=== PATIENT | female | born 1935 | race Caucasian/White ===

== ENCOUNTER 2016-10-19 10:11 | Outpatient (CLI) | payer MEDICARE | END 2016-10-19 10:12 | disposition home or self-care (01) | DX: Z12.31 Encounter for screening mammogram for malignant neoplasm of breast (principal) ==

== ENCOUNTER 2017-04-07 08:00 | Outpatient (CLI) | payer MEDICARE ==
[2017-04-08 11:35] LABS: ALBUMIN/GLOBULIN RATIO 1.2 (1.0-2.2); BILIRUBIN,TOTAL 1.3 mg/dL (0.2-1.0); BUN - BLOOD UREA NITROGEN 15 mg/dL (6-20); CALCIUM 9.8 mg/dL (8.5-10.3); CARBON DIOXIDE - CO2 26 mmol/L (21-32); CHLORIDE 103 mmol/L (101-111); CHOL/HDL RATIO 2.5 (<4.4); CHOLESTEROL 204 mg/dL; CREATININE 0.9 mg/dL (0.4-1.0); GFR - MDRD 60 (>89); GLUCOSE 105 mg/dL (70-100); HDL CHOLESTEROL 81 mg/dL; LDL/HDL RATIO 1.1 (<4.4); POTASSIUM 4.4 mmol/L (3.5-5.0); SODIUM 136 mmol/L (135-145); TOTAL PROTEIN 7.6 g/dL (6.7-8.2); TRIGLYCERIDES 175 mg/dL; VLDL CHOLESTEROL 35 mg/dL
[2017-04-08 11:49] LABS: HEMOGLOBIN A1C 0.63 g/dL
== END 2017-04-07 08:01 | disposition home or self-care (01) ==
LOC: LAB.F 08:00
PROVIDERS: ATTEND Internal Medicine
DX: E78.00 Pure hypercholesterolemia, unspecified (principal); R73.9 Hyperglycemia, unspecified
CPT/HCPCS: 36415; 80053; 80061; 83036

== ENCOUNTER 2018-07-06 10:26 | Outpatient (CLI) | payer MEDICARE ==
--- NOTE | 2018-07-07 10:47 | Mammography Report ---
Reason: SCREENING MAMMO Procedure Date: 07/06/2018 Accession Number: [id number] / [id number] Procedure: MGS - Screening Mammo Dig Bilat CPT Code: FULL RESULT: EXAM: Screening Mammo Dig Bilat DATE: 07/06/2018 11:02 AM CLINICAL HISTORY: Routine screening TECHNIQUE: Bilateral CC and MLO views were obtained. COMPARISON: 10/19/2016, 06/27/2013, 05/25/2012, and 05/19/2011 FINDINGS: There are scattered fibroglandular densities. There is no significant interval change on the left. On the right there is a new 1 cm nodule 10:00 position posterior third for which spot compression and true lateral views with ultrasound is suggested. Otherwise no suspicious masses, clustered microcalcifications, or regions of architectural distortion are identified. IMPRESSION: Needs additional evaluation right breast. Negative left breast. RECOMMENDATION: Spot compression and true lateral views right breast with ultrasound BIRADS CATEGORY 0: Needs additional evaluation. STANDARD QUALIFYING STATEMENTS: 1. This examination was reviewed with the aid of Computer-Aided Detection (CAD). 2. A negative or benign imaging report should not delay biopsy if clinically suspicious findings are present. Consider surgical consultation if warrented. More than 5% of cancers are not identified by imaging. 3. Dense breasts may obscure an underlying neoplasm.
== END 2018-07-06 10:27 | disposition home or self-care (01) ==
LOC: DI.S 10:26
DX: Z12.31 Encounter for screening mammogram for malignant neoplasm of breast (principal)
CPT/HCPCS: 77067

== ENCOUNTER 2018-07-28 13:51 | Outpatient (CLI) | payer MEDICARE ==
--- NOTE | 2018-07-28 16:41 | Mammography Report ---
Reason: ABN MAMMO -RT SPEC VIEWS Procedure Date: 07/28/2018 Accession Number: [id number] / [id number] Procedure: LON - Diag Special Views Dig RT CPT Code: FULL RESULT: EXAM: Diag Special Views Dig RT DATE: 07/28/2018 3:04 PM CLINICAL HISTORY: Recall from recent screening exam for small oval mass lateral right breast. TECHNIQUE: Right CC and MLO spot compression. CC and MLO 3-D mammography. Real-time targeted ultrasound. COMPARISON: 07/06/2018 through 05/19/2011 FINDINGS: The breast demonstrates scattered fibroglandular densities. Additional images confirm a 5 mm well-circumscribed oval mass at 8:00, 4 cm from nipple, right breast. There are no suspicious calcifications or areas of distortion. Ultrasound findings. Targeted ultrasound of the right breast is performed by the technologist. At 8:00, 4 cm from nipple there is a well-circumscribed 5 mm simple cyst corresponding to the mammographic finding. IMPRESSION: 5 mm simple cyst corresponds to finding recalled from recent screening exam. Benign. BI-RADS Category 2. RECOMMENDATION: Routine annual screening unless otherwise clinically indicated. BI-RADS CATEGORY 2: Benign findings STANDARD QUALIFYING STATEMENTS: 1. This examination was not reviewed with the aid of Computer-Aided Detection (CAD). 2. A negative or benign imaging report should not preclude biopsy if clinically suspicious findings are present. 3. Dense breasts may obscure an underlying neoplasm. 4. This examination was reviewed with the aid of 3D breast imaging (tomosynthesis).
== END 2018-07-28 13:52 | disposition home or self-care (01) ==
LOC: DI 13:51
PROVIDERS: ATTEND Nurse Practitioner Family
DX: N60.01 Solitary cyst of right breast (principal)
CPT/HCPCS: 76642

== ENCOUNTER 2018-11-13 12:35 | Outpatient (CLI) | payer MEDICARE ==
[2018-11-13 18:42] LABS: BASOPHILS % (AUTO) 0.6 %; EOSINOPHILS # (AUTO) 0.1 10^3/uL (0.0-0.7); EOSINOPHILS % (AUTO) 2.2 %; HGB - HEMOGLOBIN 14.3 g/dL (12.0-16.0); LYMPHOCYTES # (AUTO) 1.4 10^3/uL (1.5-3.5); LYMPHOCYTES % (AUTO) 31.4 %; MEAN CORPUSCULAR HEMOGLOBIN 33.7 pg (27.0-31.0); MEAN CORPUSCULAR HGB CONC 33.7 g/dL (32.0-36.0); MEAN CORPUSCULAR VOLUME 100.1 fL (81.0-99.0); MEAN PLATELET VOLUME 8.5 fL (7.9-10.8); MONOCYTES # (AUTO) 0.6 10^3/uL (0.0-1.0); MONOCYTES % (AUTO) 13.5 %; NEUTROPHILS # (AUTO) 2.3 10^3/uL (1.5-6.6); NEUTROPHILS % (AUTO) 52.3 %; PLT - PLATELET COUNT 201 10^3/uL (130-450); RED BLOOD COUNT 4.23 10^6/uL (4.20-5.40); RED CELL DISTRIBUTION WIDTH 13.3 % (12.0-15.0); WHITE BLOOD COUNT 4.3 x10^3/uL (4.8-10.8)
[2018-11-13 18:50] LABS: ALBUMIN 3.9 g/dL (3.2-5.5); ALBUMIN/GLOBULIN RATIO 1.1 (1.0-2.2); ALKALINE PHOSPHATASE 38 IU/L (42-121); ALT ALANINE AMINOTRANSFERASE 16 IU/L (10-60); AST ASPARTATE AMINOTRANSFERASE 22 IU/L (10-42); BILIRUBIN,TOTAL 1.7 mg/dL (0.2-1.0); BUN - BLOOD UREA NITROGEN 20 mg/dL (6-20); CALCIUM 9.6 mg/dL (8.5-10.3); CARBON DIOXIDE - CO2 26 mmol/L (21-32); CHLORIDE 98 mmol/L (101-111); CHOL/HDL RATIO 2.5 (<4.4); CHOLESTEROL 190 mg/dL; CREATININE 0.7 mg/dL (0.4-1.0); GFR - MDRD 80 (>89); GLUCOSE 110 mg/dL (70-100); HDL CHOLESTEROL 77 mg/dL; LDL CHOLESTEROL,CALCULATED 96 mg/dL; LDL/HDL RATIO 1.2 (<4.4); SODIUM 134 mmol/L (135-145); TOTAL PROTEIN 7.3 g/dL (6.7-8.2); VLDL CHOLESTEROL 17 mg/dL
[2018-11-13 20:59] LABS: HB2 TOTAL 14.9 g/dL; HEMOGLOBIN A1C 0.57 g/dL; HEMOGLOBIN A1C % 5.7 % (4.6-6.2)
== END 2018-11-13 12:36 | disposition home or self-care (01) ==
LOC: LAB.F 12:35
PROVIDERS: ATTEND Nurse Practitioner Family
DX: I10 Essential (primary) hypertension (principal); E78.00 Pure hypercholesterolemia, unspecified; R73.9 Hyperglycemia, unspecified; M19.90 Unspecified osteoarthritis, unspecified site; E55.9 Vitamin D deficiency, unspecified
CPT/HCPCS: 36415; 80053; 80061; 82043; 82306; 83036; 83721; 84443; 85025

== ENCOUNTER 2018-11-20 12:30 | Outpatient (CLI) | payer MEDICARE | END 2018-11-20 23:59 | LOC: LAB.F 12:30 | PROVIDERS: ATTEND Nurse Practitioner Family | DX: D75.89 Other specified diseases of blood and blood-forming organs (principal); E78.00 Pure hypercholesterolemia, unspecified | CPT/HCPCS: 36415; 82607; 82746; 82977 ==

== ENCOUNTER 2020-05-06 11:37 | Outpatient (CLI) | payer MEDICARE ==
[2020-05-06 14:55] LABS: BASOPHILS # (AUTO) 0.1 10^3/uL (0.0-0.1); BASOPHILS % (AUTO) 0.9 %; EOSINOPHILS # (AUTO) 0.2 10^3/uL (0.0-0.7); EOSINOPHILS % (AUTO) 2.9 %; HGB - HEMOGLOBIN 14.9 g/dL (12.0-16.0); LYMPHOCYTES # (AUTO) 1.4 10^3/uL (1.5-3.5); LYMPHOCYTES % (AUTO) 25.6 %; MEAN CORPUSCULAR HEMOGLOBIN 33.7 pg (27.0-31.0); MEAN CORPUSCULAR HGB CONC 33.9 g/dL (32.0-36.0); MEAN CORPUSCULAR VOLUME 99.3 fL (81.0-99.0); MEAN PLATELET VOLUME 10.6 fL (7.9-10.8); MONOCYTES # (AUTO) 0.7 10^3/uL (0.0-1.0); MONOCYTES % (AUTO) 13.2 %; NEUTROPHILS # (AUTO) 3.1 10^3/uL (1.5-6.6); PLT - PLATELET COUNT 204 10^3/uL (130-450); RED BLOOD COUNT 4.42 10^6/uL (4.20-5.40); RED CELL DISTRIBUTION WIDTH 12.8 % (12.0-15.0); WHITE BLOOD COUNT 5.5 x10^3/uL (4.8-10.8)
[2020-05-06 15:20] LABS: ALBUMIN 4.4 g/dL (3.2-5.5); ALBUMIN/GLOBULIN RATIO 1.4 (1.0-2.2); ALKALINE PHOSPHATASE 41 IU/L (42-121); ALT ALANINE AMINOTRANSFERASE 12 IU/L (10-60); AST ASPARTATE AMINOTRANSFERASE 18 IU/L (10-42); BILIRUBIN,TOTAL 1.8 mg/dL (0.2-1.0); BUN - BLOOD UREA NITROGEN 19 mg/dL (6-20); CALCIUM 9.8 mg/dL (8.5-10.3); CARBON DIOXIDE - CO2 26 mmol/L (21-32); CHLORIDE 102 mmol/L (101-111); CHOL/HDL RATIO 2.7 (<4.4); CHOLESTEROL 200 mg/dL; CREATININE 0.7 mg/dL (0.4-1.0); GLUCOSE 108 mg/dL (70-100); HDL CHOLESTEROL 75 mg/dL; LDL CHOLESTEROL,CALCULATED 107 mg/dL; LDL/HDL RATIO 1.4 (<4.4); SODIUM 137 mmol/L (135-145); TOTAL PROTEIN 7.5 g/dL (6.7-8.2); VLDL CHOLESTEROL 18 mg/dL
== END 2020-05-06 11:38 | disposition home or self-care (01) ==
LOC: LAB.S 11:37
PROVIDERS: ATTEND Registered Nurse
DX: I10 Essential (primary) hypertension (principal); D75.89 Other specified diseases of blood and blood-forming organs; E78.00 Pure hypercholesterolemia, unspecified; R73.9 Hyperglycemia, unspecified; I48.21 Permanent atrial fibrillation
CPT/HCPCS: 36415; 80053; 80061; 83721; 84443; 85025

== ENCOUNTER 2021-05-26 08:00 | Outpatient (CLI) | payer MEDICARE ==
--- NOTE | 2021-05-26 17:37 | XRAY Report ---
PROCEDURE: Thoracic Spine 3 View INDICATIONS: KYPHOSIS DEFORMITY OF SPINE TECHNIQUE: 3 views of the thoracic spine were acquired. COMPARISON: None. FINDINGS: No acute fracture. Scattered multilevel endplate spurring and diffuse facet arthropathy. Multilevel c ervical spondylosis also noted. IMPRESSION: Diffuse discogenic changes. No definite fracture identified. If the patient's pain or other symptoms persist, consider further evaluation with MRI. Reviewed by: Suman Hudson MD on 05/26/2021 5:35 PM PDT Approved by: Suman Hudson MD on 05/26/2021 5:35 PM PDT Station ID: [id number]
--- NOTE | 2021-05-26 20:55 | XRAY Report ---
PROCEDURE: Lumbar Spine 2 View INDICATIONS: KYPHOSIS DEFORMITY OF SPINE TECHNIQUE: 3 views of the lumbar spine were acquired. COMPARISON: None. FINDINGS: Bones: 5 dna-ddl-[id number] vertebrae are present. There is qzhb-ig-glvwihru scoliosis. No vertebral body compression fractures. No suspicious bony lesions. There is severe degenerative disease and fa cet arthropathy in lumbar spine, most pronounced at L1-L2, L4-L5 and L5-S1. Soft tissues: Overlying bowel gas pattern is normal. No suspicious soft tissue calcifications. IMPRESSION: 1. Degenerative disc and facet disease in lumbar spine. 2. Scoliosis. Reviewed by: Ammy Doty MD on 05/26/2021 8:54 PM PDT Approved by: Ammy Doty MD on 05/26/2021 8:54 PM PDT Station ID: [id number]
== END 2021-05-26 23:59 | disposition home or self-care (01) ==
LOC: DI.S 08:00
PROVIDERS: ATTEND Emergency Medicine
DX: M47.814 Spondylosis without myelopathy or radiculopathy, thoracic region (principal); M51.34 Other intervertebral disc degeneration, thoracic region; M47.816 Spondylosis without myelopathy or radiculopathy, lumbar region; M51.36 Other intervertebral disc degeneration, lumbar region; M47.817 Spondylosis without myelopathy or radiculopathy, lumbosacral region; M51.37 Other intervertebral disc degeneration, lumbosacral region

== ENCOUNTER 2021-07-16 08:58 | Outpatient (CLI) | payer MEDICARE ==
[2021-07-16 15:41] LABS: BASOPHILS % (AUTO) 0.8 %; EOSINOPHILS # (AUTO) 0.2 10^3/uL (0.0-0.7); EOSINOPHILS % (AUTO) 4.5 %; HCT - HEMATOCRIT 37.4 % (37.0-47.0); HGB - HEMOGLOBIN 11.6 g/dL (12.0-16.0); LYMPHOCYTES # (AUTO) 1.6 10^3/uL (1.5-3.5); LYMPHOCYTES % (AUTO) 31.5 %; MEAN CORPUSCULAR HEMOGLOBIN 29.4 pg (27.0-31.0); MEAN CORPUSCULAR VOLUME 94.7 fL (81.0-99.0); MEAN PLATELET VOLUME 9.8 fL (7.9-10.8); MONOCYTES # (AUTO) 0.8 10^3/uL (0.0-1.0); MONOCYTES % (AUTO) 15.2 %; NEUTROPHILS # (AUTO) 2.4 10^3/uL (1.5-6.6); NEUTROPHILS % (AUTO) 47.8 %; PLT - PLATELET COUNT 249 10^3/uL (130-450); RED BLOOD COUNT 3.95 10^6/uL (4.20-5.40); RED CELL DISTRIBUTION WIDTH 13.7 % (12.0-15.0); WHITE BLOOD COUNT 4.9 x10^3/uL (4.8-10.8)
[2021-07-16 15:59] LABS: ALBUMIN 3.9 g/dL (3.2-5.5); ALBUMIN/GLOBULIN RATIO 1.2 (1.0-2.2); ALKALINE PHOSPHATASE 40 IU/L (42-121); ALT ALANINE AMINOTRANSFERASE 18 IU/L (10-60); AST ASPARTATE AMINOTRANSFERASE 25 IU/L (10-42); BILIRUBIN,TOTAL 1.6 mg/dL (0.2-1.0); BUN - BLOOD UREA NITROGEN 22 mg/dL (6-20); CALCIUM 9.9 mg/dL (8.5-10.3); CARBON DIOXIDE - CO2 26 mmol/L (21-32); CHLORIDE 105 mmol/L (101-111); CHOL/HDL RATIO 2.1 (<4.4); CHOLESTEROL 174 mg/dL; CREATININE 0.8 mg/dL (0.4-1.0); GFR - MDRD 68 (>89); GLUCOSE 106 mg/dL (70-100); HDL CHOLESTEROL 82 mg/dL; LDL CHOLESTEROL,CALCULATED 75 mg/dL; LDL/HDL RATIO 0.9 (<4.4); POTASSIUM 4.3 mmol/L (3.5-5.0); SODIUM 141 mmol/L (135-145); TOTAL PROTEIN 7.1 g/dL (6.7-8.2); TRIGLYCERIDES 84 mg/dL; VLDL CHOLESTEROL 17 mg/dL
[2021-07-16 16:08] LABS: THYROID STIMULATING HORMONE 2.62 uIU/mL (0.34-5.60)
== END 2021-07-16 08:59 | disposition home or self-care (01) ==
LOC: LAB.S 08:58
PROVIDERS: ATTEND Registered Nurse
DX: I48.21 Permanent atrial fibrillation (principal); E78.00 Pure hypercholesterolemia, unspecified; R73.9 Hyperglycemia, unspecified; I10 Essential (primary) hypertension
CPT/HCPCS: 36415; 80053; 80061; 83721; 84443; 85025

== ENCOUNTER 2021-09-11 16:25 | Outpatient (CLI) | payer MEDICARE | END 2021-09-11 16:26 | disposition critical access hospital (66) | LOC: EMS 16:25 | DX: Z04.1 Encounter for examination and observation following transport accident (principal); R07.89 Other chest pain | CPT/HCPCS: A0425; A0429 ==

== ENCOUNTER 2021-09-11 16:27 | Emergency (ER) | payer MEDICARE ==
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
--- NOTE | 2021-09-11 17:35 | XRAY Report ---
PROCEDURE: Chest 2 View X-Ray INDICATIONS: chest wall inj TECHNIQUE: 2 view(s) of the chest. COMPARISON: None. FINDINGS: Surgical changes and devices: None. Lungs and pleura: No pleural effusions or pneumothorax. Lungs are clear. Mediastinum: Mediastinal contours are normal. Heart size is normal. A hiatal hernia is noted. Bones and chest wall: No suspicious bony abnormalities. Soft tissues appear unremarkable. IMPRESSION: 1. No acute cardiopulmonary abnormality. 2. Hiatal hernia. Reviewed by: Lazaro Espinoza on 09/11/2021 4:34 PM [facility] Approved by: Lazaro Espinoza on 09/11/2021 4:34 PM [facility] Station ID: [id number]
--- NOTE | 2021-09-11 17:40 | XRAY Report ---
PROCEDURE: Hand 3 View BILAT INDICATIONS: b hand inj TECHNIQUE: 3 views of both hands were obtained. COMPARISON: None FINDINGS: Bones: There is a fracture of the base of the fifth metacarpal. Degenerative changes of the interphal angeal joints and the first carpometacarpal joints of both hands is consistent with osteoarthritis. Soft tissues: No suspicious soft tissue calcifications. IMPRESSION: 1. Fracture of the base of the right fifth metacarpal. 2. Osteoarthritis of both hands. Reviewed by: Lazaro Espinoza on 09/11/2021 4:39 PM [facility] Approved by: Lazaro Espinoza on 09/11/2021 4:39 PM [facility] Station ID: [id number]
[2021-09-11] MEDS: SODIUM CHLORIDE 0.9% 1,000 ML IV STA (18:58)
[2021-09-11] MEDS ORDERED: IOPAMIDOL-300 100 ML VIAL ONE (19:03)
[2021-09-11 19:08] LABS: MEAN CORPUSCULAR VOLUME 92.5 fL (81.0-99.0)
[2021-09-11 19:13] LABS: BASOPHILS % (AUTO) 0.6 %; EOSINOPHILS % (AUTO) 0.8 %; HGB - HEMOGLOBIN 9.8 g/dL (12.0-16.0); LYMPHOCYTES % (AUTO) 6.5 %; MEAN CORPUSCULAR HEMOGLOBIN 29.3 pg (27.0-31.0); MEAN CORPUSCULAR HGB CONC 31.6 g/dL (32.0-36.0); MEAN PLATELET VOLUME 9.3 fL (7.9-10.8); MONOCYTES % (AUTO) 10.6 %; NEUTROPHILS % (AUTO) 80.9 %; PLT - PLATELET COUNT 205 10^3/uL (130-450); RED BLOOD COUNT 3.35 10^6/uL (4.20-5.40); WHITE BLOOD COUNT 15.5 x10^3/uL (4.8-10.8)
[2021-09-11 19:15] LABS: ABNORMAL LYMPHS % (MANUAL) 0 %
[2021-09-11 19:18] LABS: INR 1.1 (0.8-1.2); PT - PROTHROMBIN TIME 12.5 secs (9.9-12.6)
[2021-09-11 19:24] LABS: ALBUMIN 3.4 g/dL (3.2-5.5); ALBUMIN/GLOBULIN RATIO 1.3 (1.0-2.2); BILIRUBIN,TOTAL 1.2 mg/dL (0.2-1.0); CALCIUM 8.8 mg/dL (8.5-10.3); CREATININE 0.9 mg/dL (0.4-1.0); POTASSIUM 4.1 mmol/L (3.5-5.0); TOTAL PROTEIN 6.1 g/dL (6.7-8.2)
[2021-09-11 19:43] LABS: BAND NEUTROPHILS % (MANUAL) 5 %; DIFFERENTIAL COMMENT MANUAL DIFFERENTIAL; EOSINOPHILS # (MANUAL) 0.2 10^3/uL (0-0.7); LYMPHOCYTES # (MANUAL) 1.9 10^3/uL (1.5-3.5); LYMPHOCYTES % (MANUAL) 12 %; MONOCYTES # (MANUAL) 1.1 10^3/uL (0.0-1.0); NEUTROPHILS # (MANUAL) 12.4 10^3/uL (1.5-6.6); PLATELET ESTIMATE, MANUAL NORMAL (130-450,000) (NORMAL); PLATELET MORPHOLOGY NORMAL APPEARANCE (NORMAL); RBC MORPHOLOGY (MULTIPLE) NORMAL APPEARANCE (NORMAL)
[2021-09-11] MEDS: IOPAMIDOL-300 100 ML VIAL IVP ONE (20:04)
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
[2021-09-11 20:48] LABS: HCT - HEMATOCRIT 30.3 % (37.0-47.0); HGB - HEMOGLOBIN 9.7 g/dL (12.0-16.0)
[2021-09-11 21:15] VITALS: BP 125/66
[2021-09-11 22:22] LABS: B. PARAPERTUSSIS- RESP PCR PAN NOT DETECTED; B. PERTUSSIS- RESP PCR PANEL NOT DETECTED; C. PNEUMONIAE- RESP PCR PANEL NOT DETECTED; CORONAVIRUS 229E-RESP PCR NOT DETECTED; CORONAVIRUS HKU1-RESP PCR NOT DETECTED; CORONAVIRUS NL63-RESP PCR NOT DETECTED; CORONAVIRUS OC43-RESP PCR NOT DETECTED; HUMAN METAPNEUMOVIRUS NOT DETECTED; INFLUENZA A- RESP PCR PANEL NOT DETECTED; INFLUENZA B - RESP PCR PANEL NOT DETECTED; M. PNEUMONIAE- RESP PCR PANEL NOT DETECTED; PARAINFLUENZA VIRUS 1 NOT DETECTED; PARAINFLUENZA VIRUS 2 NOT DETECTED; PARAINFLUENZA VIRUS 3 NOT DETECTED; PARAINFLUENZA VIRUS 4 NOT DETECTED; RHINOVIRUS/ENTEROVIRUS NOT DETECTED; RSV- RESP PCR PANEL NOT DETECTED; SARS-CoV-2 -RESP PCR PANEL NOT DETECTED
== END 2021-09-11 21:48 | disposition short-term general hospital (02) ==
LOC: EDUNIT# → ED 16:27
DX: S62.316A Displaced fracture of base of fifth metacarpal bone, right hand, initial encounter for closed fracture (principal); S22.21XA Fracture of manubrium, initial encounter for closed fracture; V49.9XXA Car occupant (driver) (passenger) injured in unspecified traffic accident, initial encounter; K44.9 Diaphragmatic hernia without obstruction or gangrene; I10 Essential (primary) hypertension; I48.91 Unspecified atrial fibrillation; N64.89 Other specified disorders of breast; R57.8 Other shock; I95.9 Hypotension, unspecified; R60.9 Edema, unspecified
CPT/HCPCS: 29125; 36415; 70450; 71046; 71260; 72125; 73130; 74177; 80053; 83605; 83690; 85014; 85018; 85025; 85610; 86850; 86900; 86901; 87631; 93005; 99283; 99285; Q9967; 0202U

== ENCOUNTER 2021-09-11 21:45 | Outpatient (CLI) | payer MEDICARE | END 2021-09-11 21:46 | disposition short-term general hospital (02) | LOC: EMS 21:45 | PROVIDERS: ATTEND Emergency Medicine | DX: T79.4XXA Traumatic shock, initial encounter (principal) | CPT/HCPCS: A0425; A0428 ==

== ENCOUNTER 2022-06-08 11:45 | Outpatient (CLI) | payer MEDICARE | END 2022-06-08 11:46 | disposition EMS.NT | LOC: EMS 11:45 | DX: Z03.89 Encounter for observation for other suspected diseases and conditions ruled out (principal) ==

== ENCOUNTER 2022-06-09 13:57 | Outpatient (CLI) | payer MEDICARE | END 2022-06-09 13:58 | disposition EMS.NT | LOC: EMS 13:57 | DX: Z03.89 Encounter for observation for other suspected diseases and conditions ruled out (principal) ==

== ENCOUNTER 2022-06-11 17:33 | Outpatient (CLI) | payer MEDICARE | END 2022-06-11 17:34 | disposition critical access hospital (66) | LOC: EMS 17:33 | DX: M25.551 Pain in right hip (principal); W19.XXXA Unspecified fall, initial encounter; Y92.009 Unspecified place in unspecified non-institutional (private) residence as the place of occurrence of the external cause | CPT/HCPCS: A0425; A0429 ==

== ENCOUNTER 2022-06-11 17:59 | Emergency (ER) | payer MEDICARE ==
--- NOTE | 2022-06-11 18:04 | ED Physician Documentation ---
PD HPI LOWER EXT INJURY - Stated complaint Stated Complaint: GLF/R KNEE PX - History obtained from History obtained from: Patient, EMS - Additional information Additional information: She fell 3 days ago in the laundry room. She does not remember how she fell but she does remember the fall, just went too fast to fall. She has had increasing hip greater than knee pain on the right since then. She is brought in by EMS. She was on the ground for about 24 hours, lives alone and does not have a life alert. She plans to get 1. Review of Systems Ten Systems: 10 systems reviewed and negative Constitutional: reports: Reviewed and negative Eyes: reports: Reviewed and negative Ears: reports: Reviewed and negative Nose: reports: Reviewed and negative Throat: reports: Reviewed and negative Respiratory: reports: Reviewed and negative PD PAST MEDICAL HISTORY - Past Medical History Cardiovascular: Hypertension, Atrial fibrillation - Allergies Allergies/Adverse Reactions: Allergies Allergy/AdvReac Type Severity Reaction Status Date / Time No Known Drug Allergies Allergy Verified 06/11/22 18:05 - Social History Does the pt smoke?: No Smoking Status: Never smoker Does the pt drink ETOH?: No Does the pt have substance abuse?: No PD ED PE NORMAL - Vitals Vital signs reviewed: Yes - General General: Alert and oriented X 3, No acute distress - HEENT HEENT: PERRL, EOMI - Neck Neck: Supple, no meningeal sign, No bony TTP - Extremities Extremities: Other (Minimal tenderness of the right hip and right knee, relatively painless internal and external rotation of the right leg. No shortening or rotation.) - Neuro Neuro: Alert and oriented X 3, Normal speech Results - Vitals Vitals: Vital Signs - 24 hr 06/11/22 06/11/22 06/11/22 18:05 18:59 20:25 Temperature 36.5 C Heart Rate 96 85 82 Respiratory 16 18 18 Rate Blood Pressure 102/57 L 124/70 130/68 O2 Saturation 98 100 97 Oxygen O2 Source Room air - Labs Labs: Laboratory Tests 06/11/22 06/11/22 18:11 18:11 WBC 16.6 H RBC 3.12 L Hgb 7.9 L Hct 25.1 L MCV 80.4 L MCH 25.3 L MCHC 31.5 L RDW 16.1 H Plt Count 292 MPV 9.5 Neut # (Auto) Not Reportable Lymph # (Auto) Not Reportable [place] # (Auto) Not Reportable Eos # (Auto) Not Reportable Baso # (Auto) Not Reportable Absolute Nucleated RBC Not Reportable Total Counted 100 Band Neuts % (Manual) 1 Abnorm Lymph % (Manual) 0 Metamyelocytes % 2 H Myelocytes % 2 H Promyelocytes % 1 H Nucleated RBC % Not Reportable Neutrophils # (Manual) 14.1 H Lymphocytes # (Manual) 0.8 L Monocytes # (Manual) 0.8 Eosinophils # (Manual) 0.0 Basophils # (Manual) 0.0 Differential Comment MANUAL DIFFERENTIAL WBC Morphology NORMAL APPEARANCE Platelet Estimate NORMAL (130-450,000) Platelet Morphology NORMAL APPEARANCE RBC Morph Micro Appear NORMAL APPEARANCE Sodium 136 Potassium 3.8 Chloride 105 Carbon Dioxide 22 Anion Gap 9.0 BUN 41 H Creatinine 1.2 H Estimated GFR (MDRD) 42 L Glucose 181 H Calcium 8.7 Total Creatine Kinase 524 H PD MEDICAL DECISION MAKING - ED course ED course: 86-year-old woman presents after a fall with right knee and hip pain. Clinically not fractured and CT of the hip and x-ray of the knee are negative for fractures. Note made of her blood work, she has had slowly worsening anemia and now has a leukocytosis with metamyelocytes, myelocytes, and promyelocytes. She does not feel acutely ill, is not febrile, and has unremarkable vital signs. Given this I am concerned for an early hematologic malignancy such as myelodysplastic syndrome and I sent a protected email to her primary care nurse practitioner discussing the need for further work-up. She is able ambulate here with a walker which is at her baseline. Departure - Departure Disposition: 01 Home, Self Care Clinical Impression: Injury of hip and thigh Qualifiers: Encounter type: initial encounter Laterality: right Qualified Code(s): S79.911A - Unspecified injury of right hip, initial encounter Knee injury Qualifiers: Encounter type: initial encounter Laterality: right Qualified Code(s): S89.91XA - Unspecified injury of right lower leg, initial encounter Condition: Good Record reviewed to determine appropriate education?: Yes Instructions: ED Meniscal Injury Knee Poss Comments: You are seen tonight for an injury with falls, you are a little dehydrated, but no findings of fracture on imaging of your hip with CT or knee with x-ray. Your blood work shows some changes with worsening anemia over time, I have emailed your primary care nurse practitioner to consider referring you to an oncologist/invoicing specialist for work-up of this. Tylenol as needed for pain. Drink plenty of fluids. Discharge Date/Time: 06/11/22 20:35
[2022-06-11 18:15] LABS: BASOPHILS % (AUTO) 0.4 %; EOSINOPHILS % (AUTO) 1.2 %; HCT - HEMATOCRIT 25.1 % (37.0-47.0); HGB - HEMOGLOBIN 7.9 g/dL (12.0-16.0); LYMPHOCYTES % (AUTO) 7.2 %; MEAN CORPUSCULAR HEMOGLOBIN 25.3 pg (27.0-31.0); MEAN CORPUSCULAR HGB CONC 31.5 g/dL (32.0-36.0); MEAN CORPUSCULAR VOLUME 80.4 fL (81.0-99.0); MEAN PLATELET VOLUME 9.5 fL (7.9-10.8); MONOCYTES % (AUTO) 10.4 %; NEUTROPHILS % (AUTO) 77.3 %; PLT - PLATELET COUNT 292 10^3/uL (130-450); RED BLOOD COUNT 3.12 10^6/uL (4.20-5.40); RED CELL DISTRIBUTION WIDTH 16.1 % (12.0-15.0); WHITE BLOOD COUNT 16.6 x10^3/uL (4.8-10.8)
[2022-06-11 18:17] LABS: ABNORMAL LYMPHS % (MANUAL) 0 %
[2022-06-11 18:30] LABS: CALCIUM 8.7 mg/dL (8.5-10.3); CREATININE 1.2 mg/dL (0.4-1.0); POTASSIUM 3.8 mmol/L (3.5-5.0)
--- NOTE | 2022-06-11 18:44 | CT Report ---
PROCEDURE: PELVIS WO INDICATIONS: Right hip and pelvic injuries TECHNIQUE: Noncontrast 3 mm axial sections acquired through the bony pelvis, with coronal and sagittal reformatt ing. For radiation dose reduction, the following was used: automated exposure control, adjustment of mA and/or kV according to patient size. COMPARISON: 09/11/2021 FINDINGS: Image quality: Excellent. Bones: Right greater left moderate hip arthrosis. There is no displaced fracture or dislocation. No pelvic ring disruption or pubic diastases. Pubic symphyseal degenerative changes are present. Partial ly visualized lumbosacral spondylosis. Soft tissues: Limited noncontrast evaluation of the intrapelvic structures is unremarkable. Hysterec kimmie. No hematoma. Probable bursal fluid bilaterally in the greater trochanter region. Right bladder diverticulum is suspected. Prominent indeterminate lymph nodes are not enlarged by size criteria. IMPRESSION: No displaced fracture identified. Please note some stress injuries are only visible by MRI. No pelvic ring disruption or hip dislocation. Scattered degenerative changes in the hips, greater on the right , pubic symphysis, and partially seen lumbosacral spine. Reviewed by: Jose Alberto Fountain MD on 06/11/2022 6:42 PM PDT Approved by: Jose Alberto Fountain MD on 06/11/2022 6:42 PM PDT Station ID: [id number]
[2022-06-11 18:45] LABS: BAND NEUTROPHILS % (MANUAL) 1 %; LYMPHOCYTES # (MANUAL) 0.8 10^3/uL (1.5-3.5); LYMPHOCYTES % (MANUAL) 5 %; METAMYELOCYTES % (MANUAL) 2 %; MONOCYTES # (MANUAL) 0.8 10^3/uL (0.0-1.0); MYELOCYTES % (MANUAL) 2 %; NEUTROPHILS # (MANUAL) 14.1 10^3/uL (1.5-6.6); PROMYELOCYTES % (MANUAL) 1 %
[2022-06-11 18:47] LABS: DIFFERENTIAL COMMENT MANUAL DIFFERENTIAL; PLATELET ESTIMATE, MANUAL NORMAL (130-450,000) (NORMAL); PLATELET MORPHOLOGY NORMAL APPEARANCE (NORMAL); RBC MORPHOLOGY (MULTIPLE) NORMAL APPEARANCE (NORMAL); WBC MORPHOLOGY (MULTIPLE) NORMAL APPEARANCE (NORMAL)
--- NOTE | 2022-06-11 19:30 | XRAY Report ---
PROCEDURE: Knee 4 View RT INDICATIONS: knee inj TECHNIQUE: 4 views of the right knee(s) were acquired. COMPARISON: None. FINDINGS: Bones: Advanced degenerative changes involving all 3 compartments. Scattered suspected loose bodies. No definite acute fracture or dislocation. Soft tissues: Joint effusion is present. Dystrophic calcification in the lower medial thigh partiall y seen. IMPRESSION: Advanced degenerative changes, limiting evaluation. No definite acute radiographic abnor mality. There is a joint effusion. If there is high concern for occult injury, consider cross-section al imaging. Reviewed by: Jose Alberto Fountain MD on 06/11/2022 7:29 PM PDT Approved by: Jose Alberto Fountain MD on 06/11/2022 7:29 PM PDT Station ID: [id number]
[2022-06-11 20:26] VITALS: BP 130/68
== END 2022-06-11 20:35 | disposition home or self-care (01) ==
LOC: EDUNIT# → ED 17:59
DX: S79.911A Unspecified injury of right hip, initial encounter (principal); S89.91XA Unspecified injury of right lower leg, initial encounter; W19.XXXA Unspecified fall, initial encounter; Y92.008 Other place in unspecified non-institutional (private) residence as the place of occurrence of the external cause; D72.89 Other specified disorders of white blood cells; D72.829 Elevated white blood cell count, unspecified
CPT/HCPCS: 36415; 80048; 82550; 85025; 99282; 99284

== ENCOUNTER 2022-08-07 19:57 | Outpatient (CLI) | payer MEDICARE | END 2022-08-07 23:59 | disposition critical access hospital (66) | LOC: EMS 19:57 | DX: R50.9 Fever, unspecified (principal); R53.81 Other malaise; R53.1 Weakness | CPT/HCPCS: A0425; A0429 ==

== ENCOUNTER 2022-08-07 20:04 | Emergency (ER) | payer MEDICARE ==
[2022-08-07] MEDS ORDERED: ACETAMINOPHEN 325 MG TABLET PO STA (20:24)
--- NOTE | 2022-08-07 20:45 | ED Physician Documentation ---
History of Present Illness - Stated complaint Stated Complaint: FEVER - Chief complaint Chief Complaint: Fever - History obtained from History obtained from: Patient, EMS - Additonal information Additional information: Patient is an 86-year-old female presenting for evaluation of fever x1 day. She is residing at [facility]. She was recently hospitalized for a GI bleed.She is unsure if she received any medications for a fever today. She did have a nasal swab which was negative for COVID at [facility]. She denies cough or congestion, abdominal pain, dysuria. She does have a diaper on for urinary inc ontinence.During last day of hospitalization it was noted that she was having some wheezing.She reports some generalized weakness And decreased appetite. Review of Systems Constitutional: reports: Fever Cardiac: denies: Chest pain / pressure Respiratory: denies: Dyspnea GI: denies: Abdominal Pain, Vomiting : denies: Unable to Void Neurologic: reports: Generalized weakness PD PAST MEDICAL HISTORY - Past Medical History Cardiovascular: Hypertension, High cholesterol, Atrial fibrillation, Other Neuro: Other Endocrine/Autoimmune: Other GI: None : Incontinence (She states she has had chronic incontinence with no previous work up) Psych: None Musculoskeletal: Osteoarthritis Derm: Herpes zoster (History of shingles on face in January 2022 ), Other (History of herpes simplex virus ) - 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 HEENT: Cataracts, Tonsil/Adenoidectomy - Present Medications Home Medications: Ambulatory Orders Medication Instructions Recorded Confirmed Simvastatin [Zocor] 20 mg PO DAILY 07/30/22 07/30/22 Ferrous Gluconate [Fergon] 324 mg PO DAILYWM #30 tab 08/04/22 Pantoprazole [Protonix] 40 mg PO BID #60 tab 08/04/22 Sucralfate [Carafate] 1 gm PO 0700,1100,1600,2200 #120 ea 08/04/22 diltiaZEM [Cardizem] 30 mg PO TIDWM #90 tab 08/04/22 cephALEXin [Keflex] 500 mg PO Q6H #28 cap 08/07/22 - Allergies Allergies/Adverse Reactions: Allergies Allergy/AdvReac Type Severity Reaction Status Date / Time No Known Drug Allergies Allergy Verified 08/07/22 20:19 - Social History Does the pt smoke?: No Smoking Status: Never smoker Does the pt drink ETOH?: No Does the pt have substance abuse?: No - POLST POLST Status: DNR PD ED PE NORMAL - General General: Alert and oriented X 3, No acute distress, Other (Elderly, frail- appearing) - HEENT HEENT: Atraumatic - Neck Neck: Supple, no meningeal sign - Cardiac Cardiac: Other (Irregularly irregular) - Respiratory Respiratory: No respiratory distress, Clear bilaterally - Abdomen Abdomen: Soft, Non tender, Non distended - Derm Derm: Warm and dry - Extremities Extremities: No edema - Neuro Neuro: Alert and oriented X 3, No motor deficit, Normal speech Results - Vitals Vitals: Vital Signs - 24 hr 08/07/22 08/07/22 08/07/22 20:06 22:30 22:56 Temperature 38.7 C H 36.5 C Heart Rate 102 H 102 H 98 Respiratory 20 22 22 Rate Blood Pressure 114/76 108/53 L 108/53 L O2 Saturation 96 97 96 Oxygen O2 Source Room air - Labs Labs: Laboratory Tests 08/07/22 08/07/22 08/07/22 20:30 20:35 20:35 WBC 11.6 H RBC 2.99 L Hgb 7.7 L Hct 24.8 L MCV 82.9 MCH 25.8 L MCHC 31.0 L RDW 17.1 H Plt Count 475 H MPV 8.7 Neut # (Auto) Not Reportable Lymph # (Auto) Not Reportable [place] # (Auto) Not Reportable Eos # (Auto) Not Reportable Baso # (Auto) Not Reportable Absolute Nucleated RBC Not Reportable Total Counted 100 Band Neuts % (Manual) 4 Abnorm Lymph % (Manual) 0 Nucleated RBC % Not Reportable Neutrophils # (Manual) 10.4 H Lymphocytes # (Manual) 0.5 L Monocytes # (Manual) 0.5 Eosinophils # (Manual) 0.2 Basophils # (Manual) 0.0 Nucleated RBCs 1 Differential Comment MANUAL DIFFERENTIAL Platelet Estimate INCREASED (>450,000) Platelet Morphology NORMAL APPEARANCE RBC Morph Micro Appear 2+ HYPOCHROMASIA Sodium 130 L Potassium 3.9 Chloride 99 L Carbon Dioxide 21 Anion Gap 10.0 BUN 31 H Creatinine 1.2 H Estimated GFR (MDRD) 42 L Glucose 120 H Lactic Acid Calcium 8.3 L Total Bilirubin 0.9 AST 15 ALT 14 Alkaline Phosphatase 70 Total Protein 6.2 L Albumin 2.3 L Globulin 3.9 Albumin/Globulin Ratio 0.6 L Lipase 33 Urine Color Urine Clarity Urine pH Ur Specific [place] Urine Protein Urine Glucose (UA) Urine Ketones Urine Occult Blood Urine Nitrite Urine Bilirubin Urine Urobilinogen Ur Leukocyte Esterase Urine RBC Urine WBC Ur Epithelial Cells Ur Squamous Epith Cells Urine Bacteria Ur Microscopic Review Urine Culture Comments Nasal Adenovirus (PCR) NOT DETECTED Nasal B. parapertussis DNA (PCR) NOT DETECTED Nasal Coronavir 229E PCR NOT DETECTED Nasal Coronavir HKU1 PCR NOT DETECTED Nasal Coronavir NL63 PCR NOT DETECTED Nasal Coronavir OC43 PCR NOT DETECTED Nasal Enterovir/Rhinovir PCR NOT DETECTED Nasal Influenza B PCR NOT DETECTED Nasal Influenza A PCR NOT DETECTED Nasal Parainfluen 1 PCR NOT DETECTED Nasal Parainfluen 2 PCR NOT DETECTED Nasal Parainfluen 3 PCR NOT DETECTED Nasal Parainfluen 4 PCR NOT DETECTED Nasal RSV (PCR) NOT DETECTED Nasal B.pertussis DNA PCR NOT DETECTED Nasal C.pneumoniae (PCR) NOT DETECTED Sy Human Metapneumo PCR NOT DETECTED Nasal M.pneumoniae (PCR) NOT DETECTED Nasal SARS-CoV-2 (PCR) NOT DETECTED 08/07/22 08/07/22 20:35 21:50 WBC RBC Hgb Hct MCV MCH MCHC RDW Plt Count MPV Neut # (Auto) Lymph # (Auto) [place] # (Auto) Eos # (Auto) Baso # (Auto) Absolute Nucleated RBC Total Counted Band Neuts % (Manual) Abnorm Lymph % (Manual) Nucleated RBC % Neutrophils # (Manual) Lymphocytes # (Manual) Monocytes # (Manual) Eosinophils # (Manual) Basophils # (Manual) Nucleated RBCs Differential Comment Platelet Estimate Platelet Morphology RBC Morph Micro Appear Sodium Potassium Chloride Carbon Dioxide Anion Gap BUN Creatinine Estimated GFR (MDRD) Glucose Lactic Acid 0.6 Calcium Total Bilirubin AST ALT Alkaline Phosphatase Total Protein Albumin Globulin Albumin/Globulin Ratio Lipase Urine Color LT. YELLOW Urine Clarity CLOUDY Urine pH 6.0 Ur Specific [place] 1.010 Urine Protein NEGATIVE Urine Glucose (UA) NEGATIVE Urine Ketones NEGATIVE Urine Occult Blood TRACE-INTA Urine Nitrite NEGATIVE Urine Bilirubin NEGATIVE Urine Urobilinogen 0.2 (NORMAL) Ur Leukocyte Esterase LARGE H Urine RBC 0-5 Urine WBC 11-25 H Ur Epithelial Cells None Seen Ur Squamous Epith Cells NONE SEEN Urine Bacteria Many H Ur Microscopic Review INDICATED Urine Culture Comments INDICATED Nasal Adenovirus (PCR) Nasal B. parapertussis DNA (PCR) Nasal Coronavir 229E PCR Nasal Coronavir HKU1 PCR Nasal Coronavir NL63 PCR Nasal Coronavir OC43 PCR Nasal Enterovir/Rhinovir PCR Nasal Influenza B PCR Nasal Influenza A PCR Nasal Parainfluen 1 PCR Nasal Parainfluen 2 PCR Nasal Parainfluen 3 PCR Nasal Parainfluen 4 PCR Nasal RSV (PCR) Nasal B.pertussis DNA PCR Nasal C.pneumoniae (PCR) Sy Human Metapneumo PCR Nasal M.pneumoniae (PCR) Nasal SARS-CoV-2 (PCR) PD MEDICAL DECISION MAKING - ED course Complexity details: reviewed results, re-evaluated patient, d/w patient ED course: Patient with fever for 1 day. She appears generally weak but was recently admitted to the hospital and discharged to [facility] for rehabilitation due to weakness. She has not altered.She does not appear septic. Her labs are reviewed.Her urine is suggestive of an infection. She has no abdominal tendernes s or complaints. I have started the patient on an antibiotic. She is able to tolerate p.o. I do not see indication for admission at this time and patient is agreeable for plan to discharge back to SNF.Patient is counseled on concerning symptoms to return for. Departure - Departure Disposition: 01 Home, Self Care Clinical Impression: UTI (urinary tract infection), Fever Condition: Stable Instructions: ED Fever Control, ED UTI Cystitis Female Prescriptions: cephALEXin [Keflex] 500 mg PO Q6H #28 cap Comments: You were evaluated for a fever and found to have a urine infection. I have started you on an antibiotic and sent this prescription to [facility] in [place]. Please complete the antibiotics as directed. Use acetaminophen for fevers; Avoid ibuprofen or NSAIDs given your recent GI bleed. Please continue with hydration and getting rest. If you have any worsening symptoms please return to the ER. Discharge Date/Time: 08/07/22 23:05
[2022-08-07 20:48] LABS: BASOPHILS % (AUTO) 0.5 %; EOSINOPHILS % (AUTO) 0.9 %; HCT - HEMATOCRIT 24.8 % (37.0-47.0); HGB - HEMOGLOBIN 7.7 g/dL (12.0-16.0); LYMPHOCYTES % (AUTO) 10.3 %; MEAN CORPUSCULAR HEMOGLOBIN 25.8 pg (27.0-31.0); MEAN CORPUSCULAR VOLUME 82.9 fL (81.0-99.0); MEAN PLATELET VOLUME 8.7 fL (7.9-10.8); MONOCYTES % (AUTO) 13.8 %; NEUTROPHILS % (AUTO) 72.9 %; PLT - PLATELET COUNT 475 10^3/uL (130-450); RED BLOOD COUNT 2.99 10^6/uL (4.20-5.40); RED CELL DISTRIBUTION WIDTH 17.1 % (12.0-15.0); WHITE BLOOD COUNT 11.6 x10^3/uL (4.8-10.8)
[2022-08-07 20:50] LABS: ABNORMAL LYMPHS % (MANUAL) 0 %
[2022-08-07 21:02] LABS: ALBUMIN 2.3 g/dL (3.2-5.5); ALBUMIN/GLOBULIN RATIO 0.6 (1.0-2.2); BILIRUBIN,TOTAL 0.9 mg/dL (0.2-1.0); CALCIUM 8.3 mg/dL (8.5-10.3); CREATININE 1.2 mg/dL (0.4-1.0); POTASSIUM 3.9 mmol/L (3.5-5.0); TOTAL PROTEIN 6.2 g/dL (6.7-8.2)
--- NOTE | 2022-08-07 21:12 | XRAY Report ---
PROCEDURE: Chest 1 View X-Ray INDICATIONS: fever TECHNIQUE: One view of the chest was acquired. COMPARISON: Chest single view 08/03/2022 FINDINGS: Surgical changes and devices: None. Lungs and pleura: No pleural effusions or pneumothorax. Lungs are slightly edematous. Mediastinum: Mediastinal contours appear normal. Heart size is globally enlarged. Bones and chest wall: No suspicious bony lesions. Overlying soft tissues appear unremarkable. IMPRESSION: Slight pulmonary edema, global cardiomegaly. Chronic CHF pattern without definite interval improvemen t or worsening, and no pneumonia is found. Reviewed by: Tomi Hanson MD on 08/07/2022 9:10 PM PST Approved by: Tomi Hanson MD on 08/07/2022 9:10 PM PST Station ID: [id number]
[2022-08-07 21:26] LABS: BAND NEUTROPHILS % (MANUAL) 4 %; EOSINOPHILS # (MANUAL) 0.2 10^3/uL (0-0.7); LYMPHOCYTES # (MANUAL) 0.5 10^3/uL (1.5-3.5); LYMPHOCYTES % (MANUAL) 4 %; MONOCYTES # (MANUAL) 0.5 10^3/uL (0.0-1.0); NEUTROPHILS # (MANUAL) 10.4 10^3/uL (1.5-6.6); NUCLEATED RBC (MANUAL) 1 %
[2022-08-07 21:27] LABS: DIFFERENTIAL COMMENT MANUAL DIFFERENTIAL; PLATELET ESTIMATE, MANUAL INCREASED (>450,000) (NORMAL); PLATELET MORPHOLOGY NORMAL APPEARANCE (NORMAL)
[2022-08-07 22:01] LABS: BILIRUBIN,URINE NEGATIVE (NEGATIVE); GLUCOSE, URINE (UA) NEGATIVE (NEGATIVE); KETONES,URINE (UA) NEGATIVE (NEGATIVE); LEUKOCYTE ESTERASE, URINE LARGE (NEGATIVE); NITRITE,URINE NEGATIVE (NEGATIVE); OCCULT BLOOD,URINE TRACE-INTA (NEGATIVE); PROTEIN,URINE NEGATIVE (NEGATIVE); UROBILINOGEN,URINE 0.2 (NORMAL) E.U./dL (NORMAL)
[2022-08-07 22:02] LABS: CLARITY,URINE CLOUDY (CLEAR)
[2022-08-07 22:08] LABS: B. PARAPERTUSSIS- RESP PCR PAN NOT DETECTED; B. PERTUSSIS- RESP PCR PANEL NOT DETECTED; C. PNEUMONIAE- RESP PCR PANEL NOT DETECTED; CORONAVIRUS 229E-RESP PCR NOT DETECTED; CORONAVIRUS HKU1-RESP PCR NOT DETECTED; CORONAVIRUS NL63-RESP PCR NOT DETECTED; CORONAVIRUS OC43-RESP PCR NOT DETECTED; HUMAN METAPNEUMOVIRUS NOT DETECTED; INFLUENZA A- RESP PCR PANEL NOT DETECTED; INFLUENZA B - RESP PCR PANEL NOT DETECTED; M. PNEUMONIAE- RESP PCR PANEL NOT DETECTED; PARAINFLUENZA VIRUS 1 NOT DETECTED; PARAINFLUENZA VIRUS 2 NOT DETECTED; PARAINFLUENZA VIRUS 3 NOT DETECTED; PARAINFLUENZA VIRUS 4 NOT DETECTED; RHINOVIRUS/ENTEROVIRUS NOT DETECTED; RSV- RESP PCR PANEL NOT DETECTED; SARS-CoV-2 -RESP PCR PANEL NOT DETECTED
[2022-08-07 22:08] LABS: BACTERIA,URINE Many /HPF (None Seen); EPITHELIAL CELLS,UR None Seen /HPF (<= Few); RBC,URINE 0-5 /HPF (0-5)
[2022-08-07 22:09] LABS: SQUAMOUS EPITHELIAL CELL,UR NONE SEEN (<= Few)
[2022-08-07] MEDS ORDERED: cefTRIAXone 1 GM in SODIUM CHLORIDE 0.9% MINIBAG 100 ML IV STA (22:12)
[2022-08-07] MEDS ORDERED: cefTRIAXone 1 GM VIAL ONE (22:15)
[2022-08-07 22:45] VITALS: BP 108/53
--- NOTE | 2022-08-08 08:17 | ED Physician Documentation ---
ED Addendum - Addendum Addendum: 08/08/22 08:15 The patient was seen last evening for fever and malaise. Did not look septic per ER physician note. She did have a fever and initially tachycardic but blood pressure was good. Lactate was normal. Was treated with Rocephin for possible UTI. Chest x-ray and respiratory PCR test were negative. This morning were getting a preliminary blood culture from 1 bottle of gram- negative bacilli. I would presume this less likely contaminant but further identification is pending. At this point I would presume to have the nursing staff contact the patient at her assisted living to return to the ER for evaluation of gram-negative bacteremia.
== END 2022-08-07 23:05 | disposition home or self-care (01) ==
LOC: EDUNIT# → ED 20:04
DX: N39.0 Urinary tract infection, site not specified (principal); R32 Unspecified urinary incontinence; R53.1 Weakness; R06.2 Wheezing; I10 Essential (primary) hypertension
CPT/HCPCS: 36415; 71045; 80053; 81001; 83605; 83690; 85025; 87040; 87086; 87150; 87181; 87633; 96365; 99283; 99284; A9270; 81003

== ENCOUNTER 2022-08-07 23:08 | Outpatient (CLI) | payer MEDICARE | END 2022-08-07 23:09 | disposition home or self-care (01) | LOC: EMS 23:08 | PROVIDERS: ATTEND Emergency Medicine | DX: R50.9 Fever, unspecified (principal); N39.0 Urinary tract infection, site not specified; Z74.01 Bed confinement status | CPT/HCPCS: A0425; A0428 ==

== ENCOUNTER 2022-08-08 08:00 | Outpatient (CLI) | payer MEDICARE ==
[2022-08-08 21:07] LABS: CALCIUM 8.4 mg/dL (8.5-10.3); CREATININE 1.3 mg/dL (0.4-1.0); POTASSIUM 3.9 mmol/L (3.5-5.0)
== END 2022-08-08 23:59 | disposition home or self-care (01) ==
LOC: LAB.R 08:00
PROVIDERS: ATTEND Internal Medicine
DX: N18.30 Chronic kidney disease, stage 3 unspecified (principal); M62.59 Muscle wasting and atrophy, not elsewhere classified, multiple sites
CPT/HCPCS: 80048; 82607

== ENCOUNTER 2022-08-09 17:18 | Emergency (ER) | payer MEDICARE ==
[2022-08-09 18:30] LABS: BASOPHILS # (AUTO) 0.1 10^3/uL (0.0-0.1); BASOPHILS % (AUTO) 0.5 %; EOSINOPHILS # (AUTO) 0.2 10^3/uL (0.0-0.7); EOSINOPHILS % (AUTO) 2.6 %; HCT - HEMATOCRIT 25.7 % (37.0-47.0); HGB - HEMOGLOBIN 7.9 g/dL (12.0-16.0); LYMPHOCYTES # (AUTO) 1.3 10^3/uL (1.5-3.5); LYMPHOCYTES % (AUTO) 13.7 %; MEAN CORPUSCULAR HEMOGLOBIN 25.4 pg (27.0-31.0); MEAN CORPUSCULAR HGB CONC 30.7 g/dL (32.0-36.0); MEAN CORPUSCULAR VOLUME 82.6 fL (81.0-99.0); MEAN PLATELET VOLUME 8.6 fL (7.9-10.8); MONOCYTES % (AUTO) 10.4 %; NEUTROPHILS # (AUTO) 6.6 10^3/uL (1.5-6.6); NEUTROPHILS % (AUTO) 71.5 %; PLT - PLATELET COUNT 576 10^3/uL (130-450); RED BLOOD COUNT 3.11 10^6/uL (4.20-5.40); RED CELL DISTRIBUTION WIDTH 17.2 % (12.0-15.0); WHITE BLOOD COUNT 9.2 x10^3/uL (4.8-10.8)
[2022-08-09 18:42] LABS: ALBUMIN 2.3 g/dL (3.2-5.5); ALBUMIN/GLOBULIN RATIO 0.5 (1.0-2.2); BILIRUBIN,TOTAL 0.5 mg/dL (0.2-1.0); CALCIUM 8.6 mg/dL (8.5-10.3); CREATININE 1.1 mg/dL (0.4-1.0); POTASSIUM 3.5 mmol/L (3.5-5.0); TOTAL PROTEIN 6.5 g/dL (6.7-8.2)
--- NOTE | 2022-08-09 20:37 | ED Physician Documentation ---
History of Present Illness - Stated complaint Stated Complaint: POSITIVE CULTURE - Chief complaint Chief Complaint: General - History obtained from History obtained from: Patient - History of Present Illness Pain level now: 0 - Additonal information Additional information: from [facility], brought in due to positive blood culture. Patient was admitted 07/30/22 to [facility] for severe anemia, d/c 08/04. Returned to this ED 08/07 for fever, test results were c/w UTI but no evidence of sepsis or other diagnosis requiring/indicating admission. She was given rocephin and discharged with rx keflex. Her urine culture has since cultured positive for hackett-sensitive e.coli. She was advised to return to ED today due to one of two BC positive for gram negative rods. On my HPI she says she feels well. She says she has not had fevers since she was evaluated here 2 days ago, denies weakness, dyspnea, cough. Review of Systems Constitutional: denies: Fever, Chills, Sweats Cardiac: reports: Reviewed and negative Respiratory: reports: Reviewed and negative GI: reports: Reviewed and negative : denies: Dysuria, Frequency PD PAST MEDICAL HISTORY - Past Medical History Cardiovascular: Hypertension, High cholesterol, Atrial fibrillation, Other Neuro: Other Endocrine/Autoimmune: Other GI: None : Incontinence (She states she has had chronic incontinence with no previous work up) Psych: None Musculoskeletal: Osteoarthritis Derm: Herpes zoster (History of shingles on face in January 2022 ), Other (History of herpes simplex virus ) - 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 HEENT: Cataracts, Tonsil/Adenoidectomy - Present Medications Home Medications: Ambulatory Orders Medication Instructions Recorded Confirmed Simvastatin [Zocor] 20 mg PO DAILY 07/30/22 08/09/22 Ferrous Gluconate [Fergon] 324 mg PO DAILYWM #30 tab 08/04/22 08/09/22 Sucralfate [Carafate] 1 gm PO 0700,1100,1600,2200 #120 ea 08/04/22 levoFLOXacin [Levaquin] 500 mg PO DAILY 08/09/22 08/09/22 - Allergies Allergies/Adverse Reactions: Allergies Allergy/AdvReac Type Severity Reaction Status Date / Time No Known Drug Allergies Allergy Verified 08/09/22 17:22 - Social History Does the pt smoke?: No Smoking Status: Never smoker Does the pt drink ETOH?: No Does the pt have substance abuse?: No - POLST POLST Status: DNR PD ED PE NORMAL - Vitals Vital signs reviewed: Yes - General General: Alert and oriented X 3, No acute distress, Well developed/nourished - HEENT HEENT: Moist mucous membranes - Respiratory Respiratory: No respiratory distress, Clear bilaterally - Abdomen Abdomen: Soft, Non tender - Back Back: No CVA TTP - Derm Derm: Normal color, Warm and dry - Extremities Extremities: No edema - Neuro Neuro: Alert and oriented X 3 PD ED PE EXPANDED - Cardiac Cardiac: Irregularly irregular Results - Vitals Vitals: Oxygen O2 Source Room air - Labs Labs: Microbiology 08/09/22 18:13 Blood Culture - Preliminary Blood - Right Hand NO GROWTH AFTER 2 DAYS 08/09/22 18:13 Blood Culture - Preliminary Blood - Right Arm NO GROWTH AFTER 2 DAYS Laboratory Tests 08/09/22 08/09/22 08/09/22 18:13 18:13 18:13 WBC 9.2 RBC 3.11 L Hgb 7.9 L Hct 25.7 L MCV 82.6 MCH 25.4 L MCHC 30.7 L RDW 17.2 H Plt Count 576 H MPV 8.6 Neut # (Auto) 6.6 Lymph # (Auto) 1.3 L [place] # (Auto) 1.0 Eos # (Auto) 0.2 Baso # (Auto) 0.1 Absolute Nucleated RBC 0.00 Nucleated RBC % 0.0 Sodium 132 L Potassium 3.5 Chloride 100 L Carbon Dioxide 21 Anion Gap 11.0 BUN 31 H Creatinine 1.1 H Estimated GFR (MDRD) 47 L Glucose 106 H Lactic Acid 0.8 Calcium 8.6 Total Bilirubin 0.5 AST 16 ALT 12 Alkaline Phosphatase 62 Total Protein 6.5 L Albumin 2.3 L Globulin 4.2 Albumin/Globulin Ratio 0.5 L Lipase 31 PD MEDICAL DECISION MAKING - ED course Complexity details: reviewed old records, reviewed results, re-evaluated patient, considered differential, d/w patient ED course: Patient returns to ED after T+R 2 days ago, one of two blood cultures positive for hackett-sensitive e.coli (which was also cultured from urine obtained same day). She again has normal lactate and normal WBC. Vital signs are stable without hypotension and she reports feeling well. Her hgb is 7.9, improved from 7.7 on previous visit. She is given IV rocephin and is appropriate for d/c with her current medications and antibiotic (keflex). Departure - Departure Disposition: 01 Home, Self Care Clinical Impression: Positive blood culture Condition: Good Instructions: ED UTI Cystitis Female Follow-Up: Elisa Hurst ARNP [Primary Care Provider] - Comments: The urine culture and one of your two blood cultures from your previous visit have returned positive for bacteria (e. coli; the second blood culture did not show any bacteria). Fortunately, tonight's blood tests are unremarkable and you are on an appropriate antibiotic already for this bacteria. Further testing is not indicated at this time. Continue with your current medications including the antibiotic that was prescribed Discharge Date/Time: 08/10/22 02:00
[2022-08-09] MEDS ORDERED: LIDOCAINE 1% 2 ML VIAL MC ONE (21:02)
[2022-08-09] MEDS ORDERED: cefTRIAXone 1 GM VIAL IM STA (21:02)
[2022-08-10 06:46] VITALS: BP 133/81
== END 2022-08-10 02:00 | disposition home or self-care (01) ==
LOC: ED 17:18
DX: Z09 Encounter for follow-up examination after completed treatment for conditions other than malignant neoplasm (principal); B96.23 Unspecified Shiga toxin-producing Escherichia coli [E. coli] [STEC] as the cause of diseases classified elsewhere; Z66 Do not resuscitate
CPT/HCPCS: 36415; 80053; 83605; 83690; 85025; 87040; 96372; 99283

== ENCOUNTER 2022-08-13 07:47 | Outpatient (CLI) | payer MEDICARE ==
[2022-08-13 07:55] LABS: BASOPHILS % (AUTO) 0.5 %; BILIRUBIN,URINE NEGATIVE (NEGATIVE); EOSINOPHILS % (AUTO) 0.7 %; GLUCOSE, URINE (UA) NEGATIVE (NEGATIVE); HCT - HEMATOCRIT 23.4 % (37.0-47.0); HGB - HEMOGLOBIN 7.2 g/dL (12.0-16.0); KETONES,URINE (UA) NEGATIVE (NEGATIVE); LEUKOCYTE ESTERASE, URINE SMALL (NEGATIVE); LYMPHOCYTES # (AUTO) 1.2 10^3/uL (1.5-3.5); LYMPHOCYTES % (AUTO) 29.4 %; MEAN CORPUSCULAR HEMOGLOBIN 25.2 pg (27.0-31.0); MEAN CORPUSCULAR HGB CONC 30.8 g/dL (32.0-36.0); MEAN CORPUSCULAR VOLUME 81.8 fL (81.0-99.0); MEAN PLATELET VOLUME 8.3 fL (7.9-10.8); MONOCYTES # (AUTO) 1.1 10^3/uL (0.0-1.0); MONOCYTES % (AUTO) 27.2 %; NEUTROPHILS # (AUTO) 1.7 10^3/uL (1.5-6.6); NEUTROPHILS % (AUTO) 41.2 %; NITRITE,URINE NEGATIVE (NEGATIVE); OCCULT BLOOD,URINE NEGATIVE (NEGATIVE); PLT - PLATELET COUNT 441 10^3/uL (130-450); PROTEIN,URINE NEGATIVE (NEGATIVE); RED BLOOD COUNT 2.86 10^6/uL (4.20-5.40); RED CELL DISTRIBUTION WIDTH 17.2 % (12.0-15.0); UROBILINOGEN,URINE 0.2 (NORMAL) E.U./dL (NORMAL); WHITE BLOOD COUNT 4.2 x10^3/uL (4.8-10.8)
[2022-08-13 08:00] LABS: BACTERIA,URINE Few /HPF (None Seen); CLARITY,URINE HAZY (CLEAR); RBC,URINE None Seen /HPF (0-5); SQUAMOUS EPITHELIAL CELL,UR RARE Squamous (<= Few)
[2022-08-13 08:06] LABS: CALCIUM 8.3 mg/dL (8.5-10.3); CREATININE 0.9 mg/dL (0.4-1.0); POTASSIUM 3.1 mmol/L (3.5-5.0)
== END 2022-08-13 07:48 | disposition home or self-care (01) ==
LOC: LAB.R 07:47
PROVIDERS: ATTEND Internal Medicine
DX: I10 Essential (primary) hypertension (principal); D50.9 Iron deficiency anemia, unspecified; N39.0 Urinary tract infection, site not specified
CPT/HCPCS: 80048; 81001; 85025; 87086

== ENCOUNTER 2022-08-13 08:00 | Outpatient (CLI) | payer MEDICARE ==
[2022-08-13 14:19] LABS: B. PARAPERTUSSIS- RESP PCR PAN NOT DETECTED; B. PERTUSSIS- RESP PCR PANEL NOT DETECTED; C. PNEUMONIAE- RESP PCR PANEL NOT DETECTED; CORONAVIRUS 229E-RESP PCR NOT DETECTED; CORONAVIRUS HKU1-RESP PCR NOT DETECTED; CORONAVIRUS NL63-RESP PCR NOT DETECTED; CORONAVIRUS OC43-RESP PCR NOT DETECTED; HUMAN METAPNEUMOVIRUS NOT DETECTED; INFLUENZA A H3- RESP PCR PANEL DETECTED; INFLUENZA B - RESP PCR PANEL NOT DETECTED; M. PNEUMONIAE- RESP PCR PANEL NOT DETECTED; PARAINFLUENZA VIRUS 1 NOT DETECTED; PARAINFLUENZA VIRUS 2 NOT DETECTED; PARAINFLUENZA VIRUS 3 NOT DETECTED; PARAINFLUENZA VIRUS 4 NOT DETECTED; RHINOVIRUS/ENTEROVIRUS NOT DETECTED; RSV- RESP PCR PANEL NOT DETECTED; SARS-CoV-2 -RESP PCR PANEL NOT DETECTED
== END 2022-08-13 23:59 | disposition home or self-care (01) ==
LOC: LAB.R 08:00
PROVIDERS: ATTEND Internal Medicine
DX: Z20.822 Contact with and (suspected) exposure to COVID-19 (principal)
CPT/HCPCS: 87633

== ENCOUNTER 2022-08-13 11:52 | Outpatient (CLI) | payer MEDICARE ==
--- NOTE | 2022-08-13 13:22 | XRAY Report ---
PROCEDURE: Chest 2 View X-Ray INDICATIONS: RULE OUT SOB,WHEEZING ONE TIME ONLY FOR ELEVATED T TECHNIQUE: 2 views of the chest were acquired. COMPARISON: CXR 08/07/2022, 08/03/2022. CT chest 09/11/2021. FINDINGS: Surgical changes and devices: None. Lungs and pleura: No definite pleural effusions or pneumothorax. No consolidation. Prominent pulmona ry markings. Mediastinum: Mediastinal contours are normal. Heart size is enlarged. Bones and chest wall: No suspicious bony abnormalities. Soft tissues appear unremarkable. IMPRESSION: Pulmonary vasculature engorgement or mild fluid overload/CHF. Cardiomegaly. Reviewed by: Allen Curtis MD on 08/13/2022 1:20 PM PST Approved by: Allen Curtis MD on 08/13/2022 1:20 PM PST Station ID: [id number]
== END 2022-08-13 11:53 | disposition home or self-care (01) ==
LOC: DI 11:52
PROVIDERS: ATTEND Internal Medicine
DX: R06.2 Wheezing (principal); R50.9 Fever, unspecified; R06.02 Shortness of breath; I11.9 Hypertensive heart disease without heart failure; D50.9 Iron deficiency anemia, unspecified; N39.0 Urinary tract infection, site not specified
CPT/HCPCS: 80048; 81001; 85025; 87086

== ENCOUNTER 2022-08-30 08:00 | Outpatient (CLI) | payer MEDICARE ==
[2022-08-30 17:49] LABS: CALCIUM 9.2 mg/dL (8.5-10.3); CREATININE 0.6 mg/dL (0.4-1.0); POTASSIUM 4.3 mmol/L (3.5-5.0)
[2022-08-30 17:56] LABS: BASOPHILS # (AUTO) 0.1 10^3/uL (0.0-0.1); BASOPHILS % (AUTO) 0.7 %; EOSINOPHILS # (AUTO) 0.2 10^3/uL (0.0-0.7); EOSINOPHILS % (AUTO) 2.6 %; HCT - HEMATOCRIT 33.3 % (37.0-47.0); HGB - HEMOGLOBIN 9.9 g/dL (12.0-16.0); LYMPHOCYTES # (AUTO) 1.5 10^3/uL (1.5-3.5); LYMPHOCYTES % (AUTO) 21.3 %; MEAN CORPUSCULAR HEMOGLOBIN 25.9 pg (27.0-31.0); MEAN CORPUSCULAR HGB CONC 29.7 g/dL (32.0-36.0); MEAN CORPUSCULAR VOLUME 87.2 fL (81.0-99.0); MEAN PLATELET VOLUME 9.6 fL (7.9-10.8); MONOCYTES # (AUTO) 0.9 10^3/uL (0.0-1.0); MONOCYTES % (AUTO) 12.3 %; NEUTROPHILS # (AUTO) 4.3 10^3/uL (1.5-6.6); NEUTROPHILS % (AUTO) 62.7 %; PLT - PLATELET COUNT 370 10^3/uL (130-450); RED BLOOD COUNT 3.82 10^6/uL (4.20-5.40); RED CELL DISTRIBUTION WIDTH 19.9 % (12.0-15.0); WHITE BLOOD COUNT 6.9 x10^3/uL (4.8-10.8)
== END 2022-08-30 23:59 | disposition home or self-care (01) ==
LOC: LAB.R 08:00
PROVIDERS: ATTEND Internal Medicine
DX: I10 Essential (primary) hypertension (principal); D64.9 Anemia, unspecified
CPT/HCPCS: 80048; 85025

== ENCOUNTER 2022-09-08 14:51 | Outpatient (CLI) | payer MEDICARE ==
[2022-09-08 15:00] LABS: BASOPHILS % (AUTO) 0.6 %; EOSINOPHILS # (AUTO) 0.1 10^3/uL (0.0-0.7); EOSINOPHILS % (AUTO) 1.5 %; HCT - HEMATOCRIT 39.6 % (37.0-47.0); HGB - HEMOGLOBIN 12.1 g/dL (12.0-16.0); LYMPHOCYTES # (AUTO) 1.2 10^3/uL (1.5-3.5); LYMPHOCYTES % (AUTO) 18.2 %; MEAN CORPUSCULAR HEMOGLOBIN 26.8 pg (27.0-31.0); MEAN CORPUSCULAR HGB CONC 30.6 g/dL (32.0-36.0); MEAN CORPUSCULAR VOLUME 87.6 fL (81.0-99.0); MEAN PLATELET VOLUME 9.4 fL (7.9-10.8); MONOCYTES # (AUTO) 0.8 10^3/uL (0.0-1.0); MONOCYTES % (AUTO) 12.2 %; NEUTROPHILS # (AUTO) 4.5 10^3/uL (1.5-6.6); NEUTROPHILS % (AUTO) 67.2 %; PLT - PLATELET COUNT 262 10^3/uL (130-450); RED BLOOD COUNT 4.52 10^6/uL (4.20-5.40); RED CELL DISTRIBUTION WIDTH 20.8 % (12.0-15.0); WHITE BLOOD COUNT 6.7 x10^3/uL (4.8-10.8)
[2022-09-08 15:17] LABS: ALBUMIN 3.2 g/dL (3.2-5.5); ALBUMIN/GLOBULIN RATIO 0.8 (1.0-2.2); ALKALINE PHOSPHATASE 48 IU/L (42-121); ALT ALANINE AMINOTRANSFERASE < 10 IU/L (10-60); AST ASPARTATE AMINOTRANSFERASE 20 IU/L (10-42); BUN - BLOOD UREA NITROGEN 11 mg/dL (6-20); CALCIUM 9.1 mg/dL (8.5-10.3); CARBON DIOXIDE - CO2 22 mmol/L (21-32); CHLORIDE 99 mmol/L (101-111); CREATININE 0.7 mg/dL (0.4-1.0); GFR - MDRD 79 (>89); GLUCOSE 144 mg/dL (70-100); POTASSIUM 3.3 mmol/L (3.5-5.0); SODIUM 132 mmol/L (135-145)
[2022-09-08 15:59] LABS: PLATELET ESTIMATE, MANUAL NORMAL (130-450,000) (NORMAL); PLATELET MORPHOLOGY NORMAL APPEARANCE (NORMAL); RBC MORPHOLOGY (MULTIPLE) 3+ ANISOCYTOSIS (NORMAL); SLIDE REVIEW? Indicated
== END 2022-09-08 14:52 | disposition home or self-care (01) ==
LOC: LAB.R 14:51
PROVIDERS: ATTEND Internal Medicine
DX: D50.9 Iron deficiency anemia, unspecified (principal)
CPT/HCPCS: 80053; 85025

== ENCOUNTER 2022-10-02 10:57 | Outpatient (CLI) | payer MEDICARE | END 2022-10-02 10:58 | disposition critical access hospital (66) | LOC: EMS 10:57 | DX: M25.561 Pain in right knee (principal); Z74.1 Need for assistance with personal care | CPT/HCPCS: A0425; A0429 ==

== ENCOUNTER 2022-10-02 11:24 | Emergency (ER) | payer MEDICARE ==
[2022-10-02] MEDS ORDERED: HYDROcod/ACETAM 5/325 MG TABLET PO STA (11:56)
--- NOTE | 2022-10-02 12:01 | ED Physician Documentation ---
History of Present Illness - Stated complaint Stated Complaint: FTT - Chief complaint Chief Complaint: General - History obtained from History obtained from: Patient, Family - History of Present Illness Timing: Chronic Pain level max: 9 Pain level now: 0 - Additonal information Additional information: Patient is an 87-year-old female has had chronic knee pain for the past several years, she states that is gradually worsened over the past few weeks. Today she is unable to stand secondary to pain. She does use a walker at home. She has no pain at rest. Does not recall any recent trauma. No numbness or tingling. No falls. Her daughter states that the patient left [facility] yesterday and she is unable to take care of herself at home. They state that they talked to [facility] and they recommended that she return to the emergency department. 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 HEENT: Cataracts, Tonsil/Adenoidectomy - Present Medications Home Medications: Ambulatory Orders Medication Instructions Recorded Confirmed Simvastatin [Zocor] 20 mg PO DAILY 07/30/22 10/02/22 Ferrous Gluconate [Fergon] 324 mg PO DAILYWM #30 tab 08/04/22 10/02/22 Acetaminophen [Tylenol] 650 mg PO Q6H PRN 08/20/22 10/02/22 Cyanocobalamin [Vitamin B-12] 1,000 mcg IM UD 08/20/22 10/02/22 Potassium Chloride 10 meq PO UD 08/20/22 10/02/22 polyethylene glycoL 3350 17 gm PO UD 08/20/22 10/02/22 [Polyethylene Glycol 3350] - Allergies Allergies/Adverse Reactions: Allergies Allergy/AdvReac Type Severity Reaction Status Date / Time No Known Drug Allergies Allergy Verified 10/02/22 11:38 - Social History Does the pt smoke?: No Smoking Status: Never smoker Does the pt drink ETOH?: No Does the pt have substance abuse?: No - POLST POLST Status: DNR PD ED PE NORMAL - Vitals Vital signs reviewed: Yes - General General: Alert and oriented X 3, No acute distress - HEENT HEENT: PERRL, Moist mucous membranes - Neck Neck: Supple, no meningeal sign - Cardiac Cardiac: RRR, Strong equal pulses - Respiratory Respiratory: No respiratory distress, Clear bilaterally - Abdomen Abdomen: Soft, Non tender, Non distended - Derm Derm: Warm and dry, No rash - Extremities Extremities: Other (swelling to the B knees, NVI, FROM without pain. no bony tenderness. ACL, MCL, LCL, PCL intact.) - Neuro Neuro: Alert and oriented X 3 - Psych Psych: Normal mood, Normal affect Results - Vitals Vitals: Vital Signs - 24 hr 10/02/22 11:35 Temperature 36.8 C Heart Rate 98 Respiratory 20 Rate Blood Pressure 122/89 H O2 Saturation 99 Oxygen O2 Source Simple Mask - Rads (name of study) B knee xray Radiology: Final report received, See rad report PD Medical Decision Making - ED course Complexity details: reviewed results, re-evaluated patient, considered differential, d/w patient, d/w family ED course: 87-year-old female with bilateral knee pain. She appears to have severe arthritis on x-ray. She is still unable to walk or stand despite pain medication. She lives alone and there is no one to help take care of her. Jerald Vieyra states that they can readmit her on Tuesday. She will stay in the emergency department until then. This document was made in part using voice recognition software. While efforts are made to proofread this document, sound alike and grammatical errors may occur. Departure - Departure Clinical Impression: Arthralgia of knee Qualifiers: Laterality: bilateral Qualified Code(s): M25.561 - Pain in right knee; M25.562 - Pain in left knee Knee pain, chronic Qualifiers: Laterality: bilateral Qualified Code(s): M25.561 - Pain in right knee; M25.562 - Pain in left knee; G89.29 - Other chronic pain Condition: Stable
--- NOTE | 2022-10-02 12:50 | XRAY Report ---
PROCEDURE: Knee 4 View BILAT INDICATIONS: B knee pain R>L TECHNIQUE: 4 views of the bilateral knee(s) were acquired. COMPARISON: 06/11/2022. FINDINGS: Bones: No fractures or dislocations. No suspicious bony lesions. No patella subluxation. Moderate t o severe bilateral tricompartmental osteoarthritis is again seen more notably in bilateral lateral fe moral tibial compartments. Soft tissues: Moderate bilateral suprapatellar joint effusion is seen.. No suspicious soft tissue c alcifications. IMPRESSION: Moderate to severe bilateral tricompartmental osteoarthritis more notably in lateral fem oral tibial compartments. Moderate bilateral suprapatellar joint effusion. No acute fracture or dislo cation. Reviewed by: Jack Rosenthal MD on 10/02/2022 12:48 PM PST Approved by: Jack Rosenthal MD on 10/02/2022 12:48 PM PST Station ID: [id number]
[2022-10-02] MEDS ORDERED: oxyCODONE 5 MG TABLET PO STA (13:21)
[2022-10-02] MEDS ORDERED: COD LIVER OIL/ZINC OXIDE 113 GM TUBE TOP SCH (21:00)
[2022-10-02] MEDS: MIN OIL/DIMETHICON/COCONUT OIL 92 GM TUBE TOP SCH (21:24)
[2022-10-03] MEDS ORDERED: ACETAMINOPHEN 500 MG TABLET PO PRN (06:23)
[2022-10-03] MEDS ORDERED: polyethylene glycoL 3350 17 GM PACKET PO PRN (06:25)
[2022-10-03] MEDS: PANTOPRAZOLE 40 MG TABLET PO SCH (06:37)
[2022-10-03] MEDS: MULTIVITAMIN TABLET PO SCH (06:38)
[2022-10-03] MEDS: MIN OIL/DIMETHICON/COCONUT OIL 92 GM TUBE TOP SCH ×2 (09:22→20:30)
[2022-10-03] MEDS: ATORVASTATIN 10 MG TABLET PO SCH (09:22)
--- NOTE | 2022-10-03 10:33 | ED Physician Documentation ---
ED Addendum - Addendum Addendum: 10/03/22 10:32 Patient seen and examined at bedside. Subjective: She is complaining of generalized pain, she needs to be moved. Her knee also hurts but that was the presenting issue. Objective: Vital signs unremarkable General appears well, ANO x4 Assessment/plan 1. Right knee pain and inability to care for self. My understanding she should be going back to [facility] tomorrow. We will get her up to a chair for comfort. 2. Small left buttock stage II pressure ulcer which nurse is treating. And we will try to mobilize her as well as we can given problem #1.
[2022-10-04] MEDS: PANTOPRAZOLE 40 MG TABLET PO SCH (06:54)
[2022-10-04] MEDS: MULTIVITAMIN TABLET PO SCH (08:52)
[2022-10-04] MEDS: POTASSIUM CHLORIDE 10 MEQ CAPSULE PO SCH (08:52)
[2022-10-04] MEDS: MIN OIL/DIMETHICON/COCONUT OIL 92 GM TUBE TOP SCH ×2 (10:02→20:31)
[2022-10-04] MEDS: ATORVASTATIN 10 MG TABLET PO SCH (10:33)
[2022-10-05] MEDS: PANTOPRAZOLE 40 MG TABLET PO SCH (06:39)
[2022-10-05] MEDS: ATORVASTATIN 10 MG TABLET PO SCH (12:10)
[2022-10-05] MEDS: MIN OIL/DIMETHICON/COCONUT OIL 92 GM TUBE TOP SCH ×2 (12:10→19:43)
[2022-10-05] MEDS: MULTIVITAMIN TABLET PO SCH (12:10)
[2022-10-05] MEDS: POTASSIUM CHLORIDE 10 MEQ CAPSULE PO SCH (12:10)
[2022-10-06] MEDS: PANTOPRAZOLE 40 MG TABLET PO SCH (06:29)
[2022-10-06] MEDS: ATORVASTATIN 10 MG TABLET PO SCH (09:08)
[2022-10-06] MEDS: POTASSIUM CHLORIDE 10 MEQ CAPSULE PO SCH (09:08)
[2022-10-06] MEDS: MULTIVITAMIN TABLET PO SCH (09:08)
[2022-10-06] MEDS: MIN OIL/DIMETHICON/COCONUT OIL 92 GM TUBE TOP SCH (09:08)
--- NOTE | 2022-10-06 12:20 | ED Physician Documentation ---
ED Addendum - Addendum Addendum: 10/06/22 12:15 I have personally seen and evaluated the patient at the bedside. Subjective alert well-appearing. No acute complaints at this time. She has been up and out of bed with physical therapy. She is looking forward to being discharged to [facility] likely today or early tomorrow. Objective: vital signs evaluated which were without worrisome abnormality, fever tachycardia or hypotension. Noted small left buttock stage 1 pressure ulcer; pt is working to get OOB as often as possible. Nursing staff are changing the dressing Assessment: 87-year-old female with chronic right knee pain and inability to live independently. Had previously been at [facility] where she was taken home early but unable to be cared for at home thus she represented to the ER. Social work has been able to confirm bed availability at [facility] later today or early tomorrow. Appropriate paperwork has been signed as well as admission orders. Transportation has been arranged.
[2022-10-06 15:41] VITALS: BP 144/78
== END 2022-10-06 15:49 | disposition home or self-care (01) ==
LOC: EDUNIT# → ED 11:24
DX: M25.562 Pain in left knee (principal); M25.561 Pain in right knee; L89.322 Pressure ulcer of left buttock, stage 2; I10 Essential (primary) hypertension; Z20.822 Contact with and (suspected) exposure to COVID-19
CPT/HCPCS: 73564; 87635; 99283; A6250; A9270

== ENCOUNTER 2022-11-13 19:15 | Outpatient (CLI) | payer MEDICARE ==
[2022-11-13 20:43] LABS: CALCIUM 9.5 mg/dL (8.5-10.3); CREATININE 0.9 mg/dL (0.4-1.0)
== END 2022-11-13 23:59 | disposition home or self-care (01) ==
LOC: LAB.R 19:15
DX: E87.6 Hypokalemia (principal)
CPT/HCPCS: 80048

== ENCOUNTER 2022-12-31 14:25 | Outpatient (CLI) | payer MEDICARE ==
[2022-12-31 14:37] LABS: BASOPHILS % (AUTO) 0.5 %; EOSINOPHILS # (AUTO) 0.2 10^3/uL (0.0-0.7); EOSINOPHILS % (AUTO) 2.8 %; HGB - HEMOGLOBIN 12.7 g/dL (12.0-16.0); LYMPHOCYTES # (AUTO) 1.6 10^3/uL (1.5-3.5); LYMPHOCYTES % (AUTO) 21.2 %; MEAN CORPUSCULAR HEMOGLOBIN 30.5 pg (27.0-31.0); MEAN CORPUSCULAR HGB CONC 32.6 g/dL (32.0-36.0); MEAN CORPUSCULAR VOLUME 93.8 fL (81.0-99.0); MEAN PLATELET VOLUME 9.7 fL (7.9-10.8); MONOCYTES % (AUTO) 13.3 %; NEUTROPHILS # (AUTO) 4.8 10^3/uL (1.5-6.6); NEUTROPHILS % (AUTO) 61.9 %; PLT - PLATELET COUNT 232 10^3/uL (130-450); RED BLOOD COUNT 4.16 10^6/uL (4.20-5.40); RED CELL DISTRIBUTION WIDTH 15.2 % (12.0-15.0); WHITE BLOOD COUNT 7.7 x10^3/uL (4.8-10.8)
[2022-12-31 15:05] LABS: % IRON SATURATION 27 % (20-50); ALBUMIN 3.3 g/dL (3.2-5.5); ALBUMIN/GLOBULIN RATIO 0.9 (1.0-2.2); ALKALINE PHOSPHATASE 50 IU/L (42-121); ALT ALANINE AMINOTRANSFERASE < 10 IU/L (10-60); AST ASPARTATE AMINOTRANSFERASE 13 IU/L (10-42); BILIRUBIN,TOTAL 0.9 mg/dL (0.2-1.0); BUN - BLOOD UREA NITROGEN 26 mg/dL (6-20); CALCIUM 9.3 mg/dL (8.5-10.3); CARBON DIOXIDE - CO2 25 mmol/L (21-32); CHLORIDE 105 mmol/L (101-111); CREATININE 0.7 mg/dL (0.4-1.0); GFR - MDRD 79 (>89); GLUCOSE 111 mg/dL (70-100); IRON 69 ug/dL (28-170); POTASSIUM 3.8 mmol/L (3.5-5.0); SODIUM 138 mmol/L (135-145); TOTAL IRON BINDING CAPACITY 256 ug/dL (250-450); TOTAL PROTEIN 6.8 g/dL (6.7-8.2); TRANSFERRIN 183 mg/dL (192-382)
== END 2022-12-31 14:26 | disposition home or self-care (01) ==
LOC: LAB 14:25 → LAB.R 14:26
PROVIDERS: ATTEND Registered Nurse
DX: I10 Essential (primary) hypertension (principal); D50.0 Iron deficiency anemia secondary to blood loss (chronic); E87.6 Hypokalemia
CPT/HCPCS: 80053; 82728; 83540; 84466; 85025

== ENCOUNTER 2023-02-23 13:08 | Outpatient (CLI) | payer MEDICARE ==
[2023-02-23 19:36] LABS: BASOPHILS % (AUTO) 0.7 %; EOSINOPHILS # (AUTO) 0.2 10^3/uL (0.0-0.7); EOSINOPHILS % (AUTO) 2.8 %; HGB - HEMOGLOBIN 13.6 g/dL (12.0-16.0); LYMPHOCYTES # (AUTO) 1.4 10^3/uL (1.5-3.5); LYMPHOCYTES % (AUTO) 26.3 %; MEAN CORPUSCULAR HEMOGLOBIN 31.4 pg (27.0-31.0); MEAN CORPUSCULAR HGB CONC 31.6 g/dL (32.0-36.0); MEAN CORPUSCULAR VOLUME 99.3 fL (81.0-99.0); MONOCYTES # (AUTO) 0.7 10^3/uL (0.0-1.0); NEUTROPHILS # (AUTO) 3.1 10^3/uL (1.5-6.6); NEUTROPHILS % (AUTO) 56.8 %; PLT - PLATELET COUNT 209 10^3/uL (130-450); RED BLOOD COUNT 4.33 10^6/uL (4.20-5.40); RED CELL DISTRIBUTION WIDTH 15.9 % (12.0-15.0); WHITE BLOOD COUNT 5.4 x10^3/uL (4.8-10.8)
[2023-02-23 19:53] LABS: ALBUMIN 3.6 g/dL (3.2-5.5); ALKALINE PHOSPHATASE 48 IU/L (42-121); ALT ALANINE AMINOTRANSFERASE 12 IU/L (10-60); AST ASPARTATE AMINOTRANSFERASE 15 IU/L (10-42); BILIRUBIN,TOTAL 0.9 mg/dL (0.2-1.0); BUN - BLOOD UREA NITROGEN 22 mg/dL (6-20); CALCIUM 9.5 mg/dL (8.5-10.3); CARBON DIOXIDE - CO2 29 mmol/L (21-32); CHLORIDE 107 mmol/L (101-111); CHOL/HDL RATIO 2.5 (<4.4); CHOLESTEROL 162 mg/dL; CREATININE 0.8 mg/dL (0.4-1.0); GFR - MDRD 68 (>89); GLUCOSE 119 mg/dL (70-100); HDL CHOLESTEROL 64 mg/dL; LDL CHOLESTEROL,CALCULATED 79 mg/dL; LDL/HDL RATIO 1.2 (<4.4); POTASSIUM 4.3 mmol/L (3.5-5.0); SODIUM 141 mmol/L (135-145); TOTAL PROTEIN 7.1 g/dL (6.7-8.2); TRIGLYCERIDES 93 mg/dL; VLDL CHOLESTEROL 19 mg/dL
[2023-02-23 20:04] LABS: THYROID STIMULATING HORMONE 2.48 uIU/mL (0.34-5.60)
== END 2023-02-23 13:09 | disposition home or self-care (01) ==
LOC: LAB.S 13:08
PROVIDERS: ATTEND Registered Nurse
DX: Z79.899 Other long term (current) drug therapy (principal); Z13.29 Encounter for screening for other suspected endocrine disorder
CPT/HCPCS: 36415; 80053; 80061; 83721; 84443; 85025

== ENCOUNTER 2023-04-18 23:11 | Outpatient (CLI) | payer MEDICARE | END 2023-04-18 23:59 | disposition critical access hospital (66) | LOC: EMS 23:11 | DX: S01.81XA Laceration without foreign body of other part of head, initial encounter (principal); M54.2 Cervicalgia; W01.198A Fall on same level from slipping, tripping and stumbling with subsequent striking against other object, initial encounter; Y92.091 Bathroom in other non-institutional residence as the place of occurrence of the external cause | CPT/HCPCS: A0425; A0429 ==

== ENCOUNTER 2023-04-18 23:37 | Emergency (ER) | payer MEDICARE ==
[2023-04-19] MEDS ORDERED: TETANUS/DIPHTHERIA/PERTUSSIS 0.5 ML SYRINGE IM ONE (00:17)
--- NOTE | 2023-04-19 01:13 | ED Physician Documentation ---
PD HPI HEAD INJURY - Stated complaint Stated Complaint: GLF/LAC - Chief complaint Chief Complaint: Laceration - History obtained from History obtained from: Patient - History of Present Illness Mechanism of head injury: Fell - Additional information Additional information: HPI from patient. Patient fell while walking at home (lives at [place]). She does not recall reason for falling but she did not lose consciousness, denies BAHENA, numbness, weakness, neck pain She does not take a blood-thinner Review of Systems Eyes: reports: Reviewed and negative Cardiac: reports: Reviewed and negative Respiratory: reports: Reviewed and negative Skin: reports: Laceration (s) Musculoskeletal: reports: Reviewed and negative PD PAST MEDICAL HISTORY - Past Medical History Past Medical History: Yes Cardiovascular: Hypertension, High cholesterol, Atrial fibrillation, Other Neuro: Other Endocrine/Autoimmune: Other GI: None : Incontinence Psych: None Musculoskeletal: Osteoarthritis Derm: Herpes zoster, Other - Past Surgical History 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 HEENT: Cataracts, Tonsil/Adenoidectomy - Present Medications Home Medications: Ambulatory Orders Medication Instructions Recorded Confirmed Simvastatin [Zocor] 20 mg PO QPM 07/30/22 04/19/23 Acetaminophen [Tylenol] 650 mg PO Q4H PRN 08/20/22 04/19/23 Cyanocobalamin [Vitamin B-12] 1,000 mcg SQ Q30D 08/20/22 04/19/23 polyethylene glycoL 3350 17 gm PO DAILY PRN 08/20/22 04/19/23 [Polyethylene Glycol 3350] Albuterol Sulf [Ventolin Hfa 2 puffs PO Q4H PRN 10/03/22 04/19/23 Inhaler] Ferrous Sulfate 325 mg PO DAILY 04/19/23 04/19/23 Pantoprazole [Protonix] 40 mg PO BID 04/19/23 04/19/23 Sucralfate [Carafate] 1 tab PO TID 04/19/23 04/19/23 dilTIAZem HCL [Cardizem] 30 mg PO TID 04/19/23 04/19/23 - Allergies Allergies/Adverse Reactions: Allergies Allergy/AdvReac Type Severity Reaction Status Date / Time No Known Drug Allergies Allergy Verified 04/18/23 23:54 - Social History Does the pt smoke?: No Smoking Status: Never smoker Does the pt drink ETOH?: No Does the pt have substance abuse?: No - POLST Patient has POLST: Yes POLST Status: DNR PD ED PE NORMAL - Vitals Vital signs reviewed: Yes - General General: Alert and oriented X 3, No acute distress, Well developed/nourished - HEENT HEENT: PERRL, EOMI, Ears normal, Moist mucous membranes - Neck Neck: Supple, no meningeal sign, No bony TTP, No bruit - Cardiac Cardiac: RRR, No murmur - Neuro Neuro: Alert and oriented X 3, customer solutions teammate 2-12 intact, No motor deficit, No sensory deficit, Normal speech Eye Opening: Spontaneous Motor: Obeys Commands Verbal: Oriented GCS Score: 15 PD ED PE EXPANDED - HEENT HEENT: Other (four cm length laceration to right frontal scalp, brisk bleeding, no bomy tenderness nor step-off) Results - Vitals Vitals: Oxygen O2 Source Room air Procedures - Laceration (location) Scalp Length in cm: 4 Wound type: Into subcut fat, Clean Neurovascular status: Sensory intact, Vascular intact Tendon involvement: Tendon intact Anesthesia: Lidocaine 1% Wound preparation: Chlorhexadine, Irrigated copiously NS, Wound explored, To the base Skin layer closure: Interrupted, Running, Size #-0 - enter number (5-0) Other: Patient tolerated well, No complications, Neurovascular intact, Dressing applied, Tetanus booster given PD Medical Decision Making - ED course Complexity details: considered differential, d/w patient Departure - Departure Disposition: 01 Home, Self Care Clinical Impression: Scalp laceration Qualifiers: Encounter type: initial encounter Qualified Code(s): S01.01XA - Laceration without foreign body of scalp, initial encounter Condition: Good Instructions: ED Laceration Scalp Stitch Or Stap Comments: Follow up with your primary care provider in 7-10 days for removal of the corina Forms: PCP List Discharge Date/Time: 04/19/23 10:11
[2023-04-19] MEDS ORDERED: LIDOCAINE 1% 2 ML VIAL SUBQ STA (01:28)
[2023-04-19 08:04] VITALS: BP 156/86
== END 2023-04-19 10:11 | disposition home or self-care (01) ==
LOC: ED 23:37
DX: S01.01XA Laceration without foreign body of scalp, initial encounter (principal); W19.XXXA Unspecified fall, initial encounter; Z23 Encounter for immunization; Z71.85 Encounter for immunization safety counseling
CPT/HCPCS: 12002; 90471; 99283

== ENCOUNTER 2023-04-19 09:46 | Outpatient (CLI) | payer MEDICARE | END 2023-04-19 23:59 | disposition home or self-care (01) | LOC: EMS 09:46 | PROVIDERS: ATTEND Emergency Medicine | DX: S01.91XA Laceration without foreign body of unspecified part of head, initial encounter (principal); W18.30XA Fall on same level, unspecified, initial encounter | CPT/HCPCS: A0425; A0428 ==

== ENCOUNTER 2023-06-28 14:58 | Outpatient (CLI) | payer MEDICARE | END 2023-06-28 14:59 | disposition home or self-care (01) | LOC: DI 14:58 | PROVIDERS: ATTEND Internal Medicine | DX: I27.20 Pulmonary hypertension, unspecified (principal); I48.91 Unspecified atrial fibrillation; I77.810 Thoracic aortic ectasia; R60.9 Edema, unspecified; I34.0 Nonrheumatic mitral (valve) insufficiency | CPT/HCPCS: 93306 ==

== ENCOUNTER 2023-08-18 13:39 | Outpatient (CLI) | payer MEDICARE ==
[2023-08-18 20:12] LABS: CALCIUM 10.2 mg/dL (8.5-10.3); POTASSIUM 4.5 mmol/L (3.5-4.5)
[2023-08-18 21:15] LABS: ESTIMATED AVERAGE GLUCOSE 111 mg/dL (70-100); HEMOGLOBIN A1c% 5.5 % (4.27-6.07)
== END 2023-08-18 13:40 | disposition home or self-care (01) ==
LOC: LAB.S 13:39
PROVIDERS: ATTEND Registered Nurse
DX: R60.9 Edema, unspecified (principal); R73.9 Hyperglycemia, unspecified; I48.91 Unspecified atrial fibrillation
CPT/HCPCS: 36415; 80048; 83036; 83880